=== PATIENT | male | born 1985 | race Caucasian/White ===

== ENCOUNTER 2020-01-19 15:19 | Day surgery (SDC) | payer OTHER ==
[~2020-01-19] VITALS: Ht 188 cm; Wt 81.8 kg
[2020-01-19 15:28] VITALS: Ht 188 cm; Wt 81.8 kg
[2020-01-19 15:49] LABS: BASOPHILS 0.5 % (0-2); EOSINOPHILS 4.1 % (0-7); HEMATOCRIT 45.2 % (42.0-54.0); HEMOGLOBIN 15.1 g/dL (13.5-17.5); IMMATURE GRANULOCYTES 0.5 % (0-5); LYMPHOCYTES 32.2 % (15-50); MCH 29.4 pg (26.0-34.0); MCHC 33.4 g/dL (31.0-37.0); MCV 87.9 fL (80.0-100.0); MONOCYTES 8.9 % (2-11); NEUTROPHILS 53.8 % (40-80); PLATELET COUNT 188 10x3/uL (130-400); RBC 5.14 10x6/uL (4.20-6.10); RDW 12.6 % (11.5-14.5); WBC 5.8 10x3/uL (4.8-10.8)
[2020-01-19 15:57] LABS: APTT 27.9 SECONDS (22.8-39.4); INR 0.99 (0.85-1.17)
[2020-01-19 16:04] LABS: CALC OSMOLALITY 278 mosm/kg (275-300); CALCIUM 8.9 mg/dL (8.5-10.1); CARBON DIOXIDE 30.4 mmol/L (21.0-32.0); CHLORIDE - SERUM 103 mmol/L (98-107); CREATININE - SERUM 1.1 mg/dL (0.6-1.3); GLUCOSE 101 mg/dL (74-106); POTASSIUM - SERUM 4.1 mmol/L (3.5-5.1); SODIUM 141 mmol/L (136-145); UREA NITROGEN 8 mg/dL (7-18); eGFR NON AFRICAN AMERICAN 81 mL/min (90-120)
[2020-01-19 16:10] LABS: ALBUMIN 4.5 g/dL (3.4-5.0); ALKALINE PHOSPHATASE 137 U/L (30-120); ALT (SGPT) 28 U/L (10-68); BILIRUBIN - TOTAL 0.64 mg/dL (0.2-1.3); PROTEIN - SERUM 7.7 g/dL (6.4-8.2)
--- NOTE | 2020-01-19 20:15 | NUR ---
PATIENT ARRIVED TO FLOOR. PATIENT IS ALERT AND ORIENTED, RESTING COMFORTABLY IN BED. RESPIRATIONS ARE EVEN AND UNLABORED. NO S/S OF DISTRESS. NO C/O PAIN. CALLLIGHT WITHIN REACH. WILL CPOC.
[2020-01-19] MEDS ORDERED: PERCOCET 5-3251 TAB PO (20:17)
[2020-01-19] MEDS ORDERED: KEFLEX500 MG PO (20:17)
--- NOTE | 2020-01-19 20:30 | NUR ---
PATIENT REMAINS ALERT AND ORIENTED, RESTING COMFORTABLY IN BED. RESPIRATIONS ARE EVEN AND UNLABORED. NO S/S OF DISTRESS. NO C/O PAIN. NEEDS MET. CALL LIGHT WITHIN REACH. WILL CPOC.
[2020-01-19 20:56] VITALS: BP 142/91
--- NOTE | 2020-01-19 21:00 | NUR ---
PATIENT IS ALERT AND ORIENTED, RESTING COMFORTABLY IN BED. RESPIRATIONS ARE EVEN AND UNLABORED. PATIENT RIGHT HAND ELEVATED. NO S/S OF DISTRESS. NO C/O PAIN. NO N/V. DENIES NEEDS AT THIS TIME. CALL LIGHT WITHIN REACH. WILL CPOC.
--- NOTE | 2020-01-19 21:30 | NUR ---
PATIENT ALERT AND ORIENTED, RESTING COMFORTABLY IN BED. RESPIRATIONS ARE EVEN AND UNLABORED. NO S/S OF DISTRESS. NO C/O PAIN. NO N/V. PATIENT SHOWED ME A SCANT AMT. OF BLOOD ON BANDAGE. MED/SURG NURSE CAME OVER TO ASSIST WITH A WAKE UP BED DISCHARGE. CALL LIGHT WITHIN REACH. WILL CPOC.
--- NOTE | 2020-01-19 22:16 | NUR ---
PATIENT ALERT AND ORIENTED, RESTING COMFORTABLY IN BED. RESPIRATIONS ARE EVEN AND UNLABORED. NO S/S OF DISTRESS. NO C/O PAIN. NO N/V. NO FURTHER SIGNS OF BLEEDING. PATIENT IV REMOVED. CATHETER INTACT. PATIENT VERBALIZED UNDERSTANDING OF DISCHARGE INSTRUCTIONS. PATIENT ESCORTED OF FLOOR BY RN.
--- NOTE | 2020-01-20 07:33 | OP ---
PATIENT NAME: KWABENA BE MEDICAL RECORD: [id number] :83 LOCATION:[facility] ADMISSION DATE: SURGEON: PANFILO RAE DO DATE OF OPERATION: 01/19/2020 PROCEDURE PERFORMED: Right middle and ring third and fourth finger, distal tip amputations. PREOPERATIVE DIAGNOSIS: Right ring and middle finger crush injuries with amputation of the distal tips. POSTOPERATIVE DIAGNOSIS: Right ring and middle finger crush injuries with amputation of the distal tips. INDICATIONS: Mr. Be is a 52-year-old male who had a crush injury at work. He is right handed, right hand got caught in between 2 bars in a press, he stated and pulled his glove out and saw his distal tips of his ring and middle finger hanging and came to the ER. I was then called to see him. I saw him about 45 minutes after the injury had happened. At that point, he had circumferential lacerations around the distal tips of his middle and ring finger, just ring was at the distal phalanx, not quite at the DIP, but the middle finger was right through the DIP joint and the middle phalanx cartilage was exposed in the distal aspect. The only thing that was really visible was the flexor tendon at that point. The distal tips of each of the fingers were dusky and did not have any cap refill, therefore, did not have any blood supply. I informed him after seeing that there would be a very slim if any chance of saving the distal tips and the best option would be to amputate them completely as the only thing that was holding them on is the flexor tendon. He was okay with that and knew the risks and benefits of the procedure including infection, need for further surgery, bleeding, continued pain, phantom pain and he signed the consent. SURGEON: Panfilo Rae DO DESCRIPTION OF PROCEDURE: The patient was taken to the operative suite, laid in supine position, given general anesthetic, two grams of Ancef, sedated and LMA was placed. The right upper extremity was then prepped and draped in sterile fashion. Timeout was performed. Everyone was agreeance with correct side, site, the patient, and procedure. I then used a 15 blade scalpel and cut the flexor tendon. I noted the artery of the ring finger on the radial side was crushed. I did see it and cut at the crush point and then coagulated the more proximal point. This was done on the middle finger as well on the radial and ulnar aspects of the radial and ulnar digital arteries, both of them. Once that was done, I rongeured back the exposed bone first on the middle finger rongeuring back the middle phalanx to a point where I could close the tip of it and irrigated and once I rongeured that back, I rongeured back in distal phalanx of the ring finger to a point where I could close the skin. I then irrigated both fingers thoroughly with normal saline. I then used 4-0 nylon in simple fashion to close over the rongeured back bone. We then cleaned the hand and dressed it with Adaptic, 4 x 4s and a tube gauze and tied around his wrist. Then prior to putting the tube gauze on, I put a digital block on each one of the digits and put a 2 mL of normal saline on each of the digits on the radial and ulnar sides to provide a pain relief. I then dressed it with the tube gauze as described and tied around his wrist. He is then awakened and taken to recovery in stable condition. OPERATIVE REPORT [id number] KWABENA BE BLOOD LOSS: Minimal. COMPLICATIONS: None. TRANSINT:[id number] Voice Confirmation ID: [id number] DOCUMENT ID: [id number] PANFILO RAE DO at 0733 CC: [id number] DICTATION DATE: 01/19/202029 ELECTRIC SIGN ASSEMBLER: 01/20/20 0405 [facility] 01/19/20 [id number] [place] [address]
== END 2020-01-19 22:30 | disposition home or self-care (01) ==
LOC: D.OPS 15:19 → D.ER 15:19 → EDSTATUS 20:19 → D.M2 20:20 → D.OPS 22:30
PROVIDERS: Family Medicine; ATTEND Orthopaedic Surgery
DX: S67.192A Crushing injury of right middle finger, initial encounter (principal); S67.194A Crushing injury of right ring finger, initial encounter; S68.124A Partial traumatic metacarpophalangeal amputation of right ring finger, initial encounter; S68.122A Partial traumatic metacarpophalangeal amputation of right middle finger, initial encounter; W23.0XXA Caught, crushed, jammed, or pinched between moving objects, initial encounter; Y93.9 Activity, unspecified; Y92.9 Unspecified place or not applicable; Y99.0 Civilian activity done for income or pay